=== PATIENT | male | born 1985 | race American Indian/Alaskan Native ===

== ENCOUNTER 2021-06-05 11:59 | Emergency (ER) | payer SELFPAY ==
[2021-06-05] MEDS ORDERED: TETANUS,DIPH,PERTUSS(ACELL) VACCINE 0.5 ML SYRINGE IM ONE (12:15)
--- NOTE | 2021-06-05 12:51 | Emergency Department Report ---
- General Chief Complaint: Wound/Laceration Stated Complaint: RT ARM PAIN/HOLE IN ARM Time Seen by Provider: 06/05/21 12:11 Source: patient Mode of arrival: Ambulatory Limitations: No Limitations - History of Present Illness Initial Comments: Patient is a 35-year-old gentleman who is presenting with a laceration to his right upper extremity. Patient states he was outside let his dog go to the bathroom when he he suffered a laceration to his arm. Patient states he does not remember exactly what cutting. He states when he got back in his car started driving he noticed blood. Was not in the area with wound and metal railing. Patient cannot remember his last tetanus shot. Patient states he has very minimal pain. Patient states he has a high tolerance to pain since he has had multiple surgeries specifically on his abdomen in the past. - Related Data Previous Rx's Medication Instructions Recorded Last Taken Type Ketorolac [Toradol] 10 mg PO Q6H PRN #10 tablet 06/05/21 Unknown Rx Sulfamethoxazole/Trimethoprim 1 each PO BID #10 tablet 06/05/21 Unknown Rx [Bactrim DS TAB] Allergies Allergy/AdvReac Type Severity Reaction Status Date / Time Penicillins Allergy Hives Verified 06/05/21 12:02 ED Review of Systems ROS: Stated complaint: RT ARM PAIN/HOLE IN ARM Other details as noted in HPI Comment: All other systems reviewed and negative ED Past Medical Hx - Past Medical History Previous Medical History?: No - Surgical History Additional Surgical History: abd surgery - Medications Home Medications: Home Medications Medication Instructions Recorded Confirmed Last Taken Type Ketorolac [Toradol] 10 mg PO Q6H PRN #10 tablet 06/05/21 Unknown Rx Sulfamethoxazole/Trimethoprim 1 each PO BID #10 tablet 06/05/21 Unknown Rx [Bactrim DS TAB] ED Physical Exam - General Limitations: No Limitations General appearance: alert, in no apparent distress - Head Head exam: Present: atraumatic, normocephalic - Eye Eye exam: Present: normal appearance - ENT ENT exam: Present: mucous membranes moist - Neck Neck exam: Present: normal inspection - Respiratory Respiratory exam: Present: normal lung sounds bilaterally. Absent: respiratory distress, wheezes, rales, rhonchi - Cardiovascular Cardiovascular Exam: Present: regular rate, normal rhythm. Absent: systolic murmur, diastolic murmur, rubs, gallop - GI/Abdominal GI/Abdominal exam: Present: soft, normal bowel sounds - Rectal Rectal exam: Present: deferred - Extremities Exam Extremities exam: Present: normal inspection, other (3-1/2 cm laceration to the right forearm) - Back Exam Back exam: Present: normal inspection - Neurological Exam Neurological exam: Present: alert, oriented X3 - Psychiatric Psychiatric exam: Present: normal affect, normal mood - Skin Skin exam: Present: warm, dry, intact, normal color. Absent: rash ED Course Vital Signs 06/05/21 12:03 Temperature 98.9 F Pulse Rate 94 H Respiratory 18 Rate Blood Pressure 141/89 O2 Sat by Pulse 98 Oximetry - Procedure Description Procedures done: Patient's wound was cleaned with ChloraPrep. Anesthetized with 1% lidocaine with epinephrine. Irrigated with normal saline. Approximately 100 cc used for irrigation under high pressure. Running stitch with 3-0 Ethilon was used to close the wound. Was 8 passes were used to close. Good approximation of wound. Patient tolerate procedure well. ED Medical Decision Making - Medical Decision Making Laceration was closed. Because the patient does not remember what he closes normally he was outside here in the the patient's wound has been irrigated we will start the patient on short course of Bactrim for prophylaxis. Patient given a tetanus shot patient is stable for discharge. Critical care attestation.: If time is entered above; I have spent that time in minutes in the direct care of this critically ill patient, excluding procedure time. ED Disposition Clinical Impression: Laceration Disposition: 01 HOME / SELF CARE / HOMELESS Is pt being admited?: No Does the pt Need Aspirin: No Condition: Stable Instructions: Laceration Care, Adult Additional Instructions: Your sutures need to be removed in 7 to 10 days. Please keep the wound clean and dry. Cover with Neosporin. Please do not use hydrogen peroxide. Referrals: PRIMARY CARE, [Primary Care Provider] - 3-5 Days Time of Disposition: 12:51
[2021-06-05 13:18] VITALS: BP 132/78
== END 2021-06-05 13:18 | disposition home or self-care (01) ==
LOC: ED 11:59
DX: S51.811A Laceration without foreign body of right forearm, initial encounter (principal); W26.8XXA Contact with other sharp object(s), not elsewhere classified, initial encounter; Y93.89 Activity, other specified; Y92.89 Other specified places as the place of occurrence of the external cause; Y99.8 Other external cause status
CPT/HCPCS: 90471; 90715; 99281